=== PATIENT | female | born 1960 | race Caucasian/White ===

== ENCOUNTER → 2020-02-13 | Outpatient (CLI) | payer OTHER ==
--- NOTE | 2020-02-24 14:49 | KCIC ---
Bilateral digital screening mammograms: Reason for examination: Routine screening. No previous examinations available for comparison. New baseline. Interpretation was made with the benefit of CAD. The skin and nipples show no abnormalities. No abnormal axillary lymph nodes are seen. The breast parenchyma shows scattered fibroglandular density. (Breast density: Category B.) There are no dominant masses, suspicious calcifications or architectural distortions. Some benign calcifications are present. Impression: No evidence of malignancy. Recommend routine screening. BI-RADS category 2: Benign "Our facility is accredited by the [employer] Mammography [employer]." This patient's information has been entered into a reminder system for the patient to be notified with the results of her examination and a target date for the next mammogram. Electronically signed by: Nayana Day MD (02/24/2020 2:46 PM) [id number]
== END ==
LOC: KCIC MAMMO 11:16
PROVIDERS: ATTEND Nurse Practitioner Family
DX: Z12.31 Encounter for screening mammogram for malignant neoplasm of breast (principal); N64.89 Other specified disorders of breast
CPT/HCPCS: 77067

== ENCOUNTER → 2020-10-27 | Outpatient (CLI) | payer OTHER ==
--- NOTE | 2020-10-27 15:22 | KCIC ---
EXAM: ULTRASOUND PELVIS INDICATION: Reason: PELVIC PAIN, POSTMENOPAUSAL BLEEDING / Spl. Instructions: / History: . Last men strual period was 9 years ago.. COMPARISON: None available. TECHNIQUE: Transabdominal and endovaginal sonography was performed. FINDINGS: Urinary bladder is decompressed, producing a suboptimal acoustic window from a transabdominal perspec tive. At endovaginal imaging, the uterus measures 13.4 x 6.2 x 8.9 cm. Within the posterior aspect of the lower uterine fundus, there is a discrete 5.4 x 4.9 x 3.5 cm circu mscribed heterogeneously hyperechoic mass. The majority of the uterine myometrium is heterogeneous, a nd the endometrial stripe is not well-visualized. No fluid within endometrial canal. Cervix is grossl y unremarkable. There is a trace amount of free fluid in the cul-de-sac. The ovaries are not identifi ed. IMPRESSION: Enlarged postmenopausal uterus with ill-defined diffusely heterogeneous myometrium, indistinct endome trial stripe, and 5.4 cm lower uterine segment mass. Findings could reflect a combination of uterine fibroids and adenomyosis, however given the postmenopausal state as well as the indistinctness of the uterine myometrium, other etiologies including uterine neoplasm cannot be excluded. Recommend defini tive evaluation with pelvic MRI. Electronically signed by: Nakul Riojas MD (10/27/2020 3:20 PM) [id number]
== END ==
LOC: KCIC US 12:18
PROVIDERS: ATTEND Nurse Practitioner Family
DX: N80.0 Endometriosis of uterus (principal); D25.9 Leiomyoma of uterus, unspecified; R10.2 Pelvic and perineal pain
CPT/HCPCS: 76830; 76856

== ENCOUNTER → 2020-11-30 | Outpatient (CLI) | payer OTHER ==
--- NOTE | 2020-11-30 14:36 | KCIC ---
EXAM: Bilateral carotid artery duplex Doppler ultrasound with waveform analysis. CLINICAL HISTORY: Known occluded right internal carotid artery. Hypertension. History of stroke in [age].. TECHNIQUE: Longitudinal and transverse sonographic images of the bilateral carotid arteries was perfo rmed utilizing grayscale, color and spectral Doppler techniques. COMPARISON: no priors available FINDINGS: Right Carotid: Occlusion of the right internal carotid artery shortly after its takeoff from the bifu rcation. Left Carotid: Focal echogenic plaque of the proximal internal carotid artery with less than 50% diame ter stenosis on grayscale and color Doppler sonography. Vertebrals: Bilateral vertebral artery antegrade blood flow. Right Left PSV CCA (cm/s) 57 89 PSV ICA (cm/s) 38 prior to its occlusion 82 EDV ICA (cm/s) not evaluated 34 PSV ECA (cm/s) 123 111 Subclavian PSV (cm/s) Not evaluated Not evaluated ICA/CCA Ratio 0.4 0.6 IMPRESSION: 1. Occlusion of the right cervical internal carotid artery shortly after its takeoff from the carotid bifurcation. 2. Focal atheromatous plaquing of the left cervical internal carotid artery without hemodynamically s ignificant stenosis as described above. 3. Bilateral vertebral artery antegrade blood flow. Consensus Panel Perez-scale and Doppler US Criteria for Diagnosis of ICA Stenosis Degree of Stenosis (%) ICA PSV (Cm/sec) Plaque Estimate (%)* Normal <125 None <50 <125 <50 50-69 125-230 >50 >70 but < near occlusion >230 >50 Near occlusion High, low, or undetectable Visible Total occlusion Undetectable Visible, no detectable lumen *Plaque estimate (diameter reduction) with perez-scale and color Doppler US Degree of Stenosis (%) ICA/CCA PSV Ratio ICA EDV (cm/sec) Normal <2.0 <40 <50 <2.0 <40 50-69 2.0-4.0 40-100 >70 but < near occlusion >4.0 >100 Near occlusion Variable Variable Total occlusion Not applicable Not applicable Electronically signed by: Jaskaran Bailon MD (11/30/2020 2:34 PM) [facility]
== END ==
LOC: KCIC US 13:02
PROVIDERS: ATTEND Nurse Practitioner Family
DX: I65.23 Occlusion and stenosis of bilateral carotid arteries (principal); I77.9 Disorder of arteries and arterioles, unspecified
CPT/HCPCS: 93880

== ENCOUNTER → 2020-12-17 | Outpatient (CLI) | payer OTHER ==
[~2020-12-17] MED LIST: AMLO-187 PO; ASCO500C PO; CALC625T20 PO; CARV25TA2 PO; CHOL5000 PO; EZET10TA20 PO; GLIM4TAB8 PO; KRIL1CAP23 PO; LACT1CAP37 PO; LEVO50TA5 PO; LISI1TAB37 PO; LISI20TA18 PO; METF10007 PO; MULT-445 PO
[2020-12-17 12:09] LABS: BASO # 0.2 x10^3/uL (0.0-0.2); BASO % 1 % (0-3); EOS # 0.5 x10^3/uL (0.0-0.7); EOS % 3 % (0-3); HEMATOCRIT 36.2 % (36.0-47.0); HEMOGLOBIN 12.1 g/dL (12.0-15.5); LYMPH # 2.3 x10^3/uL (1.0-4.8); LYMPH % 15 % (24-48); MEAN CORPUSCULAR HEMOGLOBIN 29 pg (25-35); MEAN CORPUSCULAR HGB CONC 34 g/dL (31-37); MEAN CORPUSCULAR VOLUME 87 fL (79-100); MONO # 0.9 x10^3/uL (0.0-1.1); MONO % 6 % (0-9); NEUT # 11.8 x10^3/uL (1.8-7.7); NEUT % 75 % (31-73); PLATELET COUNT 458 x10^3/uL (140-400); RED BLOOD COUNT 4.18 x10^6/uL (3.50-5.40); RED CELL DISTRIBUTION WIDTH 13.6 % (11.5-14.5); WHITE BLOOD COUNT 15.7 x10^3/uL (4.0-11.0)
[2020-12-18 00:09] LABS: HEMOGLOBIN A1C 6.8 % (4.8-5.6)
== END ==
LOC: SURGPAT 11:34
PROVIDERS: ATTEND Obstetrics & Gynecology
DX: Z01.818 Encounter for other preprocedural examination (principal)
CPT/HCPCS: 36415; 83036; 85025

== ENCOUNTER 2020-12-23 06:55 | Day surgery (SDC) | payer OTHER ==
[2020-12-17 12:12] VITALS: BP 159/71
[~2020-12-23] VITALS: Ht 154.9 cm; Wt 123.0 kg
[~2020-12-23 06:55] MED LIST changes: +HYDROmorphone 2 MG/ML VIAL IVP PRN; +IV RINGERS,LACTATED 1000ML 1,000 ML IV SCH; +PROCHLORPERAZINE 10 MG/2 ML VIAL. IVP PRN; +ceFAZolin SODIUM 3 GM in IV DEXTROSE 5% 100ML 100 ML IV PRN; +fentaNYL PF VIAL 100 MCG/2 ML VIAL IVP PRN
[2020-12-23] MEDS ORDERED: LIDOCAINE 2% PF 5 ML VIAL. ONE (06:58)
[2020-12-23] MEDS ORDERED: PROPOFOL 10 MG/ML (20ML) VIAL. IV ONE ×2 (06:58→09:43)
[2020-12-23 07:27] VITALS: BP 137/65
[2020-12-23] MEDS ORDERED: MIDAZOLAM HCL/PF 2 MG/2 ML VIAL. ONE (08:08)
[2020-12-23] MEDS ORDERED: fentaNYL PF VIAL 100 MCG/2 ML VIAL ONE ×2 (08:08→10:08)
[2020-12-23] MEDS: INSULIN LISPRO 100 UNIT/ML 3ML VIAL for OP,RR ONLY. SQ PRN ×2 (08:23→10:15)
[2020-12-23] MEDS ORDERED: DEXAMETHASONE SOD PHOS 4 MG/ML VIAL ONE (08:35)
[2020-12-23] MEDS ORDERED: ONDANSETRON PF 4 MG/2 ML VIAL. ONE (08:35)
[2020-12-23] MEDS ORDERED: KETOROLAC 30 MG/ML VIAL. ONE (09:22)
[2020-12-23] MEDS ORDERED: PROPOFOL 50 ML IV ONE (09:47)
--- NOTE | 2020-12-23 10:04 | PDOC ---
BRIEF OPERATIVE NOTE Date: Dec 23, 2020 Pre-Op Diagnosis PMB and endometrial mass seen on sonogram Post-Op Diagnosis abundant tissue filling entire uterine cavity, no discrete mass seen Procedure Performed h/s D&c with myosure reach Surgeon Dr. Martinez Anesthesiologist Dr. Rouse Anesthesia Type: General Blood Loss 10cc IV Fluid see anesthesia records Urine Output straight cath prior Specimens Obtained endometrial currettings,abundant amount Findings uterus 12cm, white fluffy tissue filling entire uterine cavity; no discrete mass seen Complications none Operative Note [id number] ALONZO MARTINEZ MD Dec 23, 2020 10:04
[2020-12-23] MEDS: fentaNYL PF VIAL 100 MCG/2 ML VIAL IVP PRN ×2 (10:10→10:25)
[2020-12-23] MEDS ORDERED: INSULIN LISPRO 100 UNIT/ML 3ML VIAL for OP,RR ONLY. SQ ONE ×2 (10:15)
[2020-12-23] MEDS ORDERED: MORPHINE SULFATE 2 MG/ML INJ. ONE (10:30)
--- NOTE | 2020-12-23 10:30 | OP ---
DATE OF SURGERY: 12/23/2020 PREOPERATIVE DIAGNOSES: Postmenopausal bleeding and is supposed 5+ cm endometrial mass seen on sonogram. POSTOPERATIVE DIAGNOSIS: Abundant tissue filling the entire uterine cavity, white and fluffy in nature, but no discrete mass seen. SURGEON: Yasmin Scott MD. PILL MACHINE OPERATOR: OR personnel. ANESTHESIOLOGIST: Jesu Rouse MD. BLOOD LOSS: 10 mL. URINE OUTPUT: Straight cath prior to procedure. SPECIMEN: Abundant amount of endometrial curettings obtained in the collection system. FINDINGS: A uterus that sounded to over 12 cm with a fluffy white tissue filling the entire uterine cavity, but no discrete mass was seen. COMPLICATIONS: None. DESCRIPTION OF PROCEDURE: This patient was taken to the operating room where general anesthesia was placed. The patient was placed in dorsal lithotomy position in Jaleel stirrups. The patient's vagina was prepped and draped in the normal sterile fashion and a straight cath urine was done prior to my arrival. Upon my arrival, a timeout was performed. Once everyone agreed on the patient, the site and the procedure, the procedure was initiated. A weighted speculum was placed in the patient's vagina. A single-tooth tenaculum was used to grasp the anterior lip of the cervix. She was dilated to 5-6, but in the only endocervical canal, I did not want to force it all the way in and I could not feel it slide easily, so I initially put the 3 mm scope on to get up and then eventually switched back to the 5-6. We were able to hydrodilate and get up into the cavity very easily once the hydrodilation was done with the larger scope. Once we were in, again abundant white fluffy tissue was seen throughout the endometrium. The MyoSure Reach was obtained, as I did not see a discrete mass and I did not want to have to dilate her more and switched to the larger port for the XL if it was not needed, so at this point, the outflow was turned off. It had been primed and ready before I walked in. So at this point, the outflow was removed. The MyoSure Reach was obtained, placed in and a curetting was done. The curetting was 6 minutes and 54 seconds and a total deficit of fluid was 575 at the end. There was some on the bed and some on the floor as well, but that is what was collected and obtained. Once this was done, the tenaculum was removed. There was no active bleeding and the procedure was ended. All counts were correct x 2 by OR personnel. The patient was awakened from anesthesia and brought to recovery room in stable condition. JAMES/AC DR: Sahra TID: [id number]
[2020-12-23] MEDS: MORPHINE SULFATE 2 MG/ML INJ. IVP PRN ×2 (10:33→10:57)
[2020-12-23] MEDS ORDERED: MAG HYDROX/ALUMINUM HYD/SIMETH 30 ML ORAL.SUSP PO PRN (10:45)
[2020-12-23] MEDS ORDERED: 0.9 % SODIUM CHLORIDE 10 ML DISP.SYRIN. IV PRN (10:45)
[2020-12-23] MEDS ORDERED: SIMETHICONE 80 MG TAB.CHEW PO PRN (10:45)
[2020-12-23] MEDS ORDERED: diphenhydrAMINE HCL 25 MG CAPSULE PO PRN (10:45)
[2020-12-23] MEDS ORDERED: diphenhydrAMINE 50 MG/ML VIAL IV PRN (10:45)
[2020-12-23] MEDS ORDERED: oxyCODONE/APAP 5/325 1 TAB TABLET PO ONE (10:45)
[2020-12-23] MEDS ORDERED: CALCIUM CARBONATE 500 MG TAB.CHEW PO PRN (10:45)
[2020-12-23] MEDS ORDERED: NALOXONE 0.4 MG/ML VIAL. IV PRN (10:45)
[2020-12-23] MEDS ORDERED: OXYC1TAB15 PO (10:53)
[2020-12-23 10:57] VITALS: BP 140/56
== END 2020-12-23 11:48 | disposition home or self-care (01) ==
LOC: SURG 06:55
PROVIDERS: ATTEND Obstetrics & Gynecology
DX: N95.0 Postmenopausal bleeding (principal); N85.00 Endometrial hyperplasia, unspecified; I10 Essential (primary) hypertension; E78.00 Pure hypercholesterolemia, unspecified; E03.9 Hypothyroidism, unspecified; E11.9 Type 2 diabetes mellitus without complications; M19.90 Unspecified osteoarthritis, unspecified site; Z87.440 Personal history of urinary (tract) infections; Z79.899 Other long term (current) drug therapy; Z79.84 Long term (current) use of oral hypoglycemic drugs; Z88.0 Allergy status to penicillin; Z91.040 Latex allergy status; Z88.8 Allergy status to other drugs, medicaments and biological substances
CPT/HCPCS: 58558; 82962; A4930; J1100; J1815; J1885; J2250; J2270; J2405; J2704; J3010; A4222